=== PATIENT | female | born 1995 | race Caucasian/White ===

== ENCOUNTER 2018-06-22 06:43 | Emergency (ER) | payer OTHER ==
[2018-06-22] MEDS ORDERED: Morphine Sulfate 2 mg/mL 1mL Syr IVP ONE (07:39)
[2018-06-22] MEDS ORDERED: Sodium Chloride 0.9% 1,000 ML IV ONE (07:39)
--- NOTE | 2018-06-22 07:42 | ED Physician Chart ---
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; pt has takened Tylenol (Acetaminophen) in the past with no allergic reactions and/or no side effects to acetaminophen Allergies:: Allergies Allergy/AdvReac Type Severity Reaction Status Date / Time acetaminophen [From Velpen] Allergy Verified 06/22/18 07:16 hydrocodone [From Velpen] Allergy Verified 06/22/18 07:16 Vitals:: Vital Signs - 8 hr 06/22/18 07:00 Temp 98.3 F HR 93 RR 20 BP 133/77 O2 Sat % 99 Historian:: Patient Review:: Nurse's Note Reviewed ED Review of Systems - Review of Systems General/Constitutional: No fever, No chills, No weight loss, No weakness, No diaphoresis, No edema, No loss of appetite Skin: No skin lesions, No rash, No bruising Head: No headache, No light-headedness Eyes: No loss of vision, No pain, No diplopia ENT: No earache, No nasal drainage, No sore throat, No tinnitus Neck: No neck pain, No swelling, No thyromegaly, No stiffness, No mass noted Cardio Vascular: No chest pain, No palpitations, No PND, No orthopnea, No edema Pulmonary: No SOB, No cough, No sputum, No wheezing GI: Nausea, Vomiting, Diarrhea, Pain, No melena, No hematochezia, No constipation, No hematemesis G/U: No dysuria, No frequency, No hematuria, No nacturia Tester Food Products: No vaginal discharge, No abnormal vaginal bleed, No contraction Musculoskeletal: No bone or joint pain, No back pain, No muscle pain Endocrine: No polyuria, No polydipsia Psychiatric: No prior psych history, No depression, No anxiety, No suicidal ideation, No homicidal ideation, No auditory hallucination, No visual hallucination Hematopoietic: No bruising, No lymphadenopathy Allergic/Immuno: No urticaria, No angioedema Neurological: No syncope, No focal symptoms, No weakness, No paresthesia, No headache, No seizure, No dizziness, No confusion, No vertigo ED Past Medical History - Past Medical History Obtainable: Yes Past Medical History: Other (PID) Family History: HTN Social History: Non Smoker, No Alcohol, No Drug Use, Single Surgical History: Cholecystectomy, Psychiatricy History: None Medication: Reviewed Family Medical History - Family Member Paternal Grandmother History Unknown: Yes Hx Family Cancer: Yes Hx Family Coronary Artery Disease: Yes Hx Family Diabetes: Yes ED Physical Exam - Physical Examination General/Constitutional: Awake, Well-developed, well-nourished, Alert, No distress, GCS 15, Non-toxic appearing, Ambulatory Head: Atraumatic Eyes: Lids, conjuctiva normal, PERRL, EOMI Skin: Nl inspection, No rash, No skin lesions, No ecchymosis, Well hydrated, No lymphadenopathy ENMT: External ears, nose nl, TM canals nl, Nasal exam nl, Lips, teeth, gums nl , Oropharynx nl, Tonsils nl Neck: Nontender, Full ROM w/o pain, No JVD, No nuchal rigidity, No bruit, No mass, No stridor Other Neck comments:: supple; no meningeal signs; no cervical tenderness; no bruits Respiratory: Nl effort/Exclusion, Clear to Auscultation, No Wheeze/Rhonchi/Rales Cardio Vascular: RRR, No murmur, gallop, rubs, NL S1 S2, Carotid/Femoral/Distal pulses equal bilaterally GI: No tenderness/rebounding/guarding, No organomegaly, No hernia, Normal BS's, Nondistended, No mass/bruits, No McBurney tenderness, Rectum exam nl Other GI comments:: no pulsatile masses : No CVA tenderness Other comments:: Pelvic Exam: deferred by pt Extremities: No tenderness or effusion, Full ROM, normal strength in all extremities, No edema, Normal digits & nails Neuro/Psych: Alert/oriented, DTR's symmetric, Normal sensory exam, Normal motor strength, Judgement/insight normal, Mood normal, Normal gait, No focal deficits Misc: Normal back, No paraspinal tenderness ED Labs/Radiology/EKG Results - Lab Results Comments:: U/A: + Pyuria; WBC: 12.4 - Radiology Results Comments:: U/S: + Right Ovarian Cyst; CT Scan: 4cm Right Adnexal Cystic Lesion ED Septic Shock - . Is Septic Shock (SBP<90, OR Lactate>4 mmol\L) present?: No - <6hrs of presentation: Vital Signs: Vital Signs - 8 hr 06/22/18 07:00 Temp 98.3 F HR 93 RR 20 BP 133/77 O2 Sat % 99 ED Reassessment (Disposition) - Reassessment Reassessment:: pt tolerated po fluids well in ER; pt is asymptomatic upon discharge Reassessment Condition:: Improved - Diagnosis Diagnosis:: Abdominal Pain-Resolved; AGE; Gastroenteritis; Leukocytosis; Gastritis; Abdominal Pain; UTI; Ovarian Cyst; Pelvic Pain; Adnexal Cyst; Microscopic Hematuria; ? Nephrolithiasis - Aftercare/Follow up Instructions Aftercare/Follow-Up Instructions:: Counseled pt regarding lab results/diagnosis & need follow up, Refer to Discharge Instructions, Counseled pt & family regarding lab results/diagnosis & need follow up Medication Prescribed:: Rx: Keflex 500mg po qid x 10 days; Urine Strainer; Strain all Urine - Patient Disposition Discharge/Transfer:: Home Condition at Disposition:: Stable, Improved (RTER prn if existing s/s reoccur and/or get worse and/or any other new s/s occur; X-Rays/U/S Imaging Instructions ; ACIs given for all above Dx; Refer to GI/ Specialists DANIEL; Refer to OB-DATA TYPIST Specialist/Pattern Hanger DANIEL; F/U with PMD Today or prn; RTER prn if concerned)
[2018-06-22] MEDS ORDERED: Morphine Sulfate 2 mg/mL 1mL Syr ONE (07:50)
[2018-06-22 07:55] LABS: % BASOPHILS 1.2 % (0.0-2.0); % EOSINOPHILS 0.9 % (0.0-5.0); % LYMPHOCYTES 12.5 % (20.0-50.0); % MONOCYTES 3.2 % (2.0-10.0); % NEUTROPHILS 82.2 % (40.0-80.0); BASOPHILE ABSOLUTE 0.1 Th/cumm (0-0.2); EOSINOPHILE ABSOLUTE 0.1 Th/cmm (0.1-0.4); HEMOGLOBIN 15.1 gm/dL (12-16); LYMPHOCYTE ABSOLUTE 1.5 Th/cmm (1.5-3.0); MEAN CELL VOLUME 92.1 fl (81-100); MEAN CORPUSCULAR HGB CONC 33.7 pg (28.0-36.0); MEAN PLATELET VOLUME 8.7 fl; MONOCYTE ABSOLUTE 0.4 Th/cmm (0.3-1.0); NEUTROPHILE ABSOLUTE 10.3 Th/cmm (1.8-8.0); PLATELET COUNT 281 Th/cmm (150-400); RED BLOOD COUNT 4.88 Mil/cmm (3.80-5.10); RED CELL DISTRIBUTION WIDTH 12.5 % (11.5-20.0); WHITE BLOOD COUNT 12.4 Th/cmm (4.8-10.8)
[2018-06-22 08:17] LABS: ALB/GLOB RATIO 1.8 (1.0-1.8); ALBUMIN 4.4 gm/dL (3.7-5.3); ALKALINE PHOSPHATASE 76 U/L (34-104); AMYLASE SERUM 34 U/L (29-103); ANION GAP 13.8 (7.0-16.0); BILIRUBIN,TOTAL 0.5 mg/dL (0.3-1.0); BUN - UREA NITROGEN 9 mg/dL (7-25); CALCIUM SERUM 8.9 mg/dL (8.6-10.3); CARBON DIOXIDE 20.4 mEq/L (21.0-31.0); CHLORIDE 106 mEq/L (98-107); CREATININE - SERUM 0.6 mg/dL (0.6-1.2); GFR AFRICAN-AMERICAN > 60.0 ml/min (>90); GFR NON AFRICAN-AMERICAN > 60.0 ml/min; GLUCOSE 81 mg/dL (70-105); LIPASE 19 U/L (11-82); POTASSIUM SERUM 4.2 mEq/L (3.5-5.1); SGOT 21 U/L (13-39); SGPT/ALT 15 U/L (7-52); SODIUM SERUM 136 mEq/L (136-145); TOTAL PROTEIN,SERUM 6.9 gm/dL (6.0-8.3)
[2018-06-22] MEDS ORDERED: cefTRIAXone 1 GM in Sodium Chloride 0.9% 50 ML IV ONE (09:26)
[2018-06-22 09:38] LABS: URINE MICROSCOPIC INDICATED? YES; URINE SOURCE RANDOM
[2018-06-22 09:45] LABS: URINE BILIRUBIN NEGATIVE (NEGATIVE); URINE BLOOD NEGATIVE (NEGATIVE); URINE GLUCOSE (UA) NEGATIVE (NEGATIVE); URINE KETONE NEGATIVE (NEGATIVE); URINE LEUKOCYTE ESTERASE NEGATIVE (NEGATIVE); URINE NITRATE NEGATIVE (NEGATIVE); URINE PROTEIN TRACE mg/dL (NEGATIVE); URINE UROBILINOGEN 0.2 E.U./dL (0.2 - 1.0)
[2018-06-22 09:50] LABS: URINE CLARITY CLEAR (CLEAR); URINE COLOR YELLOW
[2018-06-22 09:52] LABS: URINE BACTERIA 1+ /hpf (NONE SEEN); URINE EPITHELIAL CELLS MODERATE /lpf (FEW); URINE WBC 0-2 /hpf (0-5)
--- NOTE | 2018-06-22 10:31 | Diagnostic Imaging Report ---
CT abdomen and pelvis without intravenous contrast Indication: Abdominal pain and vomiting Comparison: None, Technique: Axial images were obtained from the lung bases to the bilateral proximal femurs without IV contrast. Coronal reconstructions were made. total DLP: [id number], [id number] FINDINGS: Hypoventilatory atelectatic changes of the lung bases are noted. Assessment of the solid organs is limited due to lack of IV contrast. No evidence of focal hepatic lesions. The patient status post cholecystectomy. Borderline prominent spleen is noted with no focal lesions. No focal pancreatic or adrenal lesions. No evidence of hydronephrosis or focal renal lesions. An IUD is noted. Right adnexal 4 cm cystic lesion is noted with faint peripheral calcification. Mild stool is noted. No appendicitis. No free air or free fluid. The osseous structures demonstrate no acute abnormalities. There is a 6 mm sclerotic density of the left sacrum. The osseous structures demonstrate no acute abnormalities. IMPRESSION: No evidence of appendicitis. No evidence of bowel obstruction. Right adnexal cystic lesion measuring 4 cm peripheral calcification. Recommend short-term follow-up with ultrasound. IUD noted. Evidence of prior cholecystectomy. 6 mm sclerotic of the left sacrum, probably a bone island. Please correlate clinically and with old exams. If indicated CT follow up may be obtained.
--- NOTE | 2018-06-22 11:27 | Diagnostic Imaging Report ---
Ultrasound pelvis HISTORY: Pelvic pain. History of pelvic inflammatory disease a few months ago. Beta hCG is negative. LMP is 06/03/2018 COMPARISON: CT abdomen and pelvis performed the same day Technique: Longitudinal and transverse sonographic sector images of the pelvis were obtained transabdominally and transvaginally. FINDINGS: Exam is limited due to body habitus and bowel gas. The uterus measures 8.5 x 3.8 x 5 cm. An IUD is noted within the endometrial cavity. There is suboptimal assessment of the endometrial echo complex. The right ovary measures 4.5 x 4 cm demonstrating a dominant cystic lesion with peripheral echoes. This lesion measures 2.7 x 3.3 cm. Vascular flow to the right ovary is noted. The left ovary is not visualized. No free fluid in the pelvis. IMPRESSION: Limited exam due to body habitus and bowel gas. Prominent right ovary with right ovarian dominant cystic lesion measuring 4.5 x 4 cm with peripheral internal echoes. Findings may be due to a hemorrhagic or proteinaceous cyst. Other infectious or inflammatory processes is considered less likely but cannot be excluded. Clinical correlation and short-term follow-up ultrasound in 4-6 weeks is recommended to ensure resolution of this finding an rule out less likely cystic neoplastic process. IUD noted The endometrial complex was suboptimally evaluated on this exam. The left ovary was not visualized. No evidence of free fluid in the pelvis.
== END 2018-06-22 11:45 | disposition home or self-care (01) ==
LOC: ER 06:43
DX: K52.9 Noninfective gastroenteritis and colitis, unspecified (principal); K29.70 Gastritis, unspecified, without bleeding; D72.829 Elevated white blood cell count, unspecified; N83.201 Unspecified ovarian cyst, right side; N39.0 Urinary tract infection, site not specified; Z90.49 Acquired absence of other specified parts of digestive tract; Z98.890 Other specified postprocedural states
CPT/HCPCS: 99285; 96365; 96375; 76856; 74176; 36415; 85025; 81001; 82150; 84703; 83690; 80053; J2270; J2060; J2405; J0696